=== PATIENT | female | born 1975 | race Caucasian/White ===

== ENCOUNTER 2025-03-03 15:55 | Emergency (ER) | payer BC, SELFPAY ==
[2025-03-03 16:15] VITALS: BP 111/69; PULSE 101; RESP 14; TEMP 36.6; O2SAT 100
--- NOTE | 2025-03-03 16:15 | ED.GENADULT ---
HPI - General Adult General Stated complaint: heart palpitations Time Seen by Provider: 03/03/25 16:07 Source: patient, RN notes reviewed and old records reviewed Mode of arrival: ambulatory Limitations: no limitations History of Present Illness HPI narrative: 50-year-old female presents to the [facility] with concerns for heart palpitations, fluttering in her chest since yesterday. Has had shortness of breath and nausea associated with it. States that she thought it was anxiety at 1st but it is not resolving. Has a history of anxiety. Onset (ago): day(s) (1) Review of Systems Review of Systems: All systems reviewed & are unremarkable except as noted in HPI and below Constitutional: Constitutional: Reports no additional constitutional complaints ENT: Reports system reviewed and no additional complaints, except as documented Cardiovascular: Cardiovascular: Reports as per HPI, Reports chest pain, Reports rapid heart rate, Denies pedal edema, Denies edema, Reports palpitations and Reports dyspnea Respiratory: Respiratory: Reports no additional respiratory complaints, Denies chest congestion, Denies cough and Denies dyspnea Musculoskeletal: Musculoskeletal: Reports no additional musculoskeletal complaints Integumentary/Breasts: Skin/Breast: Reports system reviewed and no additional complaints, except as docu PMFSH Past Medical History Medical History (Updated 03/03/25 @ 16:41 by Tania Samano APRN) Anxiety and depression Comments At the time of my signature, I reviewed and agree with the nursing past medical, surgical, social, and family history. There is no relevant family history pertinent to the patient complaint. Exam Const: General: cooperative, healthy appearing, comfortable, no acute distress, well developed, alert and well nourished Nutritional Appearance: well nourished Orientation/consciousness: patient oriented x3 Limitations: no limitations HENMT: Head: normal to inspection Mouth: Yes Normal oral and palatal mucosa present, Yes lip normal, Yes tongue normal and Yes moist mucous membranes Eyes: General: appearance normal, both eyes and all related structures Alignment and Position: alignment normal Neck: Neck: normal visual inspection, full ROM, no lymphadenopathy and no meningeal signs Chest: Chest palpation & inspection: normal inspection of the chest Resp: Effort & Inspection: normal respiratory effort and able to speak in complete sentences Auscultation: clear to auscultation bilaterally, no crackles, no rales, no rhonchi and no wheezes Cardio: Rate: tachycardic Rhythm: regular rhythm Skin: General skin exam: normal color and no rashes or lesions noted Neuro: General: patient oriented x3, gait normal, moves all extremities and no meningeal signs Cognition (Neuro): normal cognition Speech: normal speech Gait exam (Neuro): Normal gait present Extrem: General: normal to inspection, full ROM, capillary refill normal and normal gait Psych: Appearance: grossly normal and well kempt Mental Status: mental status grossly normal Speech and movement: Normal speech and movement present and Clear speech present Affect: normal affect Attitude: cooperative Course Course Level of Care: Express Care Visit Vital Signs Vital signs: Vital Signs Temperature 98 F 03/03/25 16:15 Pulse Rate 101 H 03/03/25 16:15 Respiratory Rate 14 03/03/25 16:15 Blood Pressure 111/69 03/03/25 16:15 Pulse Oximetry 100 03/03/25 16:15 Oxygen Delivery Room Air 03/03/25 16:15 Temperature 98 F 03/03/25 16:15 Pulse Rate 101 H 03/03/25 16:15 Respiratory Rate 14 03/03/25 16:15 Blood Pressure 111/69 03/03/25 16:15 Pulse Oximetry 100 03/03/25 16:15 Oxygen Delivery Room Air 03/03/25 16:15 Reviewed Transfer Transfered to: [facility] Transportation: Other (POV, declined EMS) Transfer rationale: Patient with 1 day history of heart palpitations, nausea and shortness of breath associated with EKG shows right bundle branch block, T-wave abnormality, abnormal EKG sending for higher level of care Accepting physician: Spoke with Dr Kenrick Villa Medical Decision Making MDM Narrative Medical decision making narrative: Patient sitting in exam room. Patient is nontoxic, vitals stable. Patient presents with approximately 24 hours of heart racing associated with some shortness of breath and nausea. Abnormal EKGs, sending for higher level of care Transfer instructions reviewed with patient and to go directly to the ER. Do not eat or drink until cleared by ER provider. EMS offered, patient declined stating that her will drive her All questions have been answered, and the patient deny any further questions. Some parts of this dictation were generated by voice recognition software and may contain typographical and/or grammatical inaccuracies. Differential Diagnosis Differential Diagnosis: Electrolyte disturbance, cardiac event, AFib, a flutter, anxiety, PE Medical Records Medical records reviewed: Yes I reviewed the external patient's medical records. Vital Signs Vital Signs: Vital Signs Temperature 98 F 03/03/25 16:15 Pulse Rate 101 H 03/03/25 16:15 Respiratory Rate 14 03/03/25 16:15 Blood Pressure 111/69 03/03/25 16:15 Pulse Oximetry 100 03/03/25 16:15 Oxygen Delivery Room Air 03/03/25 16:15 Temperature 98 F 03/03/25 16:15 Pulse Rate 101 H 03/03/25 16:15 Respiratory Rate 14 03/03/25 16:15 Blood Pressure 111/69 03/03/25 16:15 Pulse Oximetry 100 03/03/25 16:15 Oxygen Delivery Room Air 03/03/25 16:15 Reviewed Lab Data Lab results reviewed: Yes I reviewed the patient's lab results. Labs: Reviewed ECG Data EKG #1: ECG completion date: 03/03/25 ECG completion time: 16:09 Prior ECG tracings: not available for review Interpretation: Sinus tachycardia, right bundle branch block, moderate T-wave abnormality abnormal EKG, ventricular rate 103, MD interval 136, QRS duration 118 EKG #2: ECG completion date: 03/03/25 ECG completion time: 16:12 Prior ECG tracings: not available for review Interpretation: Sinus rhythm, moderate T-wave abnormality, abnormal EKG Ventricle rate 96, MD interval 163, QRS duration 69 EKG #3: ECG completion date: 03/03/25 ECG completion time: 16:09 Interpretation: Sinus rhythm, moderate T-wave abnormality, abnormal EKG, ventricular rate of 88, MD interval 150, QRS duration 173 Critical Care Time Critical Care Time Critical Care Time: No Discharge Plan Discharge Clinical Impression: Heart palpitations Patient Disposition: Acute Care Hospital Condition: Stable Instructions: Antibiotic Form Patient Language: Korean Follow-up/Referrals: PHYSICIAN,MEDICAL EDUCATION COORDINATOR [Primary Care Provider, Internal Medicine]
--- NOTE | 2025-03-03 16:19 | ECG_ITS ---
Test Date: 2025-03-03 16:12:02 Measurements Intervals [place] Rate: 96 P: 64 MO: 163 QRS: 83 QRSD: 69 T: -35 QT: 321 QTc: 407 Interpretive Statements SINUS RHYTHM MODERATE T-WAVE ABNORMALITY, CONSIDER INFERIOR ISCHEMIA [-0.1+ mV T WAVE IN II/aVF] ABNORMAL ECG. Compared to ECG 03/03/2025 16:09:51 Sinus tachycardia no longer present Right bundle-branch block no longer present T-wave abnormality still present Possible ischemia still present Electronically Signed On 03-04-2025 09:36:50 CDT by Jagdeep Mares M.D.
--- NOTE | 2025-03-03 16:20 | ECG_ITS ---
Test Date: 2025-03-03 16:09:51 Measurements Intervals [place] Rate: 103 P: 65 NE: 136 QRS: 94 QRSD: 118 T: -22 QT: 366 QTc: 481 Interpretive Statements SINUS TACHYCARDIA RIGHT BUNDLE BRANCH BLOCK [120+ ms QRS DURATION, UPRIGHT V1, 40+ ms S IN I/aVL/V4/V5/V6] MODERATE T-WAVE ABNORMALITY, CONSIDER ANTEROLATERAL ISCHEMIA [-0.1+ mV T WAVE IN V3-V6] MODERATE T-WAVE ABNORMALITY, CONSIDER INFERIOR ISCHEMIA [-0.1+ mV T WAVE IN II/aVF] ABNORMAL ECG Compared to ECG 03/03/2025 16:09:15 Right bundle-branch block now present T-wave abnormality still present Electronically Signed On 03-04-2025 09:36:30 CDT by Jagdeep Mares M.D.
--- NOTE | 2025-03-03 16:20 | ECG_ITS ---
Test Date: 2025-03-03 16:09:15 Measurements Intervals [place] Rate: 88 P: 68 AR: 150 QRS: 86 QRSD: 73 T: -37 QT: 327 QTc: 397 Interpretive Statements SINUS RHYTHM MODERATE T-WAVE ABNORMALITY, CONSIDER INFEROLATERAL ISCHEMIA [-0.1+ mV T WAVE IN II/aVF] ABNORMAL ECG No previous ECG available for comparison Electronically Signed On 03-04-2025 09:35:48 CDT by Jagdeep Mares M.D.
== END 2025-03-03 16:23 | disposition short-term general hospital (02) ==
PROVIDERS: Emergency Provider Nurse Practitioner
DX: R00.2 Palpitations (principal)
CPT/HCPCS: 93005; 99213; G0463

== ENCOUNTER 2025-03-03 16:39 | Emergency (ER) | payer BC, SELFPAY ==
--- OUTSIDE RECORDS SUMMARY | 2024-05-20 04:00 | XMS_ITS ---
Author Organization [facility] Address [address] [place] [address] Care Team Providers Care Insulation Cupola Operator Name Role Phone Dr. Jason Britton Primary Care Provider [phone] Migration, Provider Unavailable Unavailable REASON FOR VISIT [place] [place] En[place] Location Date Provider Diagnosis [facility] [address] [place] [address] 05/20/2024 Provider Migration Plan Of Treatment Medication Medication Name Sig Start Date Stop Date Notes Escitalopram Oxalate 20 MG Tablet 1 Oral every day; Duration: 7 04/13/2024 04/13/2024 Rx Refill Request,discontinuere ason:Refilled Diflucan 150 MG Tablet 1 Oral once a week; Duration: 0 11/05/2020 11/05/2020 buPROPion HCl ER (XL) 150 MG Tablet Extended Release 24 Hour 1 Oral every day; Duration: 30 10/02/2021 11/30/2021 Amitriptyline HCl 10 MG Tablet 1 Oral every night at bedtime; Duration: 0 12/19/2020 12/19/2020 ,discontinuereason:U p dated Medication Hx Progress Notes * GIANNABernardo LUAiDOB:1975 (50 yo F)Acc No.[id number]:05/20/2024 Patient: Zohra DUGAN :1975 A ge:49 Y S ex:Female Address:[place], [address] * Refills Stop Escitalopram Oxalate Tablet, 20 MG, Oral, 90, 1, every day, 90 Stop Escitalopram Oxalate Tablet, 20 MG, Oral, 60, 1, every day, 60 Stop Escitalopram Oxalate Tablet, 20 MG, Oral, 14, 1, every day, 14 Stop Escitalopram Oxalate Tablet, 20 MG, Oral, 14, 1, every day, 14 Stop Amitriptyline HCl Tablet, 10 MG, Oral, 1, every night at bedtime, 0 Stop Escitalopram Oxalate Tablet, 20 MG, Oral, 90, 1, every day, 90 Stop Escitalopram Oxalate Tablet, 20 MG, Oral, 60, 1, every day, 30 Stop Escitalopram Oxalate Tablet, 20 MG, Oral, 1, every day, 0 Stop Escitalopram Oxalate Tablet, 20 MG, Oral, 90, 1, every day, 0 Stop Escitalopram Oxalate Tablet, 20 MG, Oral, 90, 1, every day, 90 Stop Escitalopram Oxalate Tablet, 20 MG, Oral, 90, 1, every day, 90 Stop Escitalopram Oxalate Tablet, 20 MG, Oral, 90, 1, every day, 90 Stop Escitalopram Oxalate Tablet, 20 MG, Oral, 7, 1, every day, 7 Stop Escitalopram Oxalate Tablet, 20 MG, Oral, 90, 1, every day, 90 Stop Escitalopram Oxalate Tablet, 20 MG, Oral, 90, 1, every day, 90 Stop Diflucan Tablet, 150 MG, Oral, 2, 1, once a week, 0 Stop buPROPion HCl ER (XL) Tablet Extended Release 24 Hour, 150 MG, Oral, 30, 1, every day, 30 Subjective: * Chief Complaints: * E MR-Quoc Objective: Past Vitals:* 03/17/2024 BP: 118/64 mm Hg, HR: 62 /mi n, Oxygen sat %: 97 %, Wt: 219.01 lbs, Wt-k.34 kg * 09/29/2022 BP: 128/82 mm Hg, HR: 84 /mi n, Oxygen sat %: 98 %, Wt: 201.37 lbs, Wt-k.34 kg * * Date:
--- OUTSIDE RECORDS SUMMARY | 2024-05-21 04:00 | XMS_ITS ---
Author Organization [facility] Address [address] [place] [id number] Care Team Providers Care Financial Reserve Clerk Name Role Phone Dr. Jason Britton Primary Care Provider [phone] Migration, Provider Unavailable Unavailable Allergies Allergen (clinical drug ingredient) Drug/Non Drug Allergy documented on EMR Reaction Allergy Type Onset Date Status Substance with penicillin structure and antibacterial mechanism of action (substance) Penicillins anaphylaxis Drug Allergy 11/05/2020 Active REASON FOR VISIT [facility] [place] Medications Medication SIG (Take, Route, Frequency, Duration) Notes Start Date End Date Status Escitalopram Oxalate 20 MG Tablet 1 Oral every day; Duration: 30 04/14/2024 10/10/2024 Active Vitamin D3 50 MCG (1999 UT) Capsule 1 Oral every day; Duration: 0 11/05/2020 Active Social History Social History Additional Details Category Social Info Options Details Migrated Social History Migrated Social History Alcohol history:Never drinks alcohol , Tobacco history:Never smoker , Number of children:3 Encounters Encounter Location Date Provider Diagnosis [facility] [address] [place] [address] 05/21/2024 Provider Migration Plan Of Treatment No Information Progress Notes * Bernardo FLOWERiDOB:1975 (50 yo F)Acc No.[id number]:05/21/2024 Patient: Zohra DUGAN :1975 A ge:49 Y S ex:Female Address:[address] [place], [address] Subjective: * Chief Complaints: * E MR-Quoc * Surgical History: Nasal Polypectomy c section ,notes : 3 times * Social History: M igrated Social History: M igrated Social History: Alcohol history:Never drinks alcohol,Tobacco history:Never smoker,Number of children:3. * Medications: T akingVitamin D3 50 MCG (1999 UT) Capsule 1 Oral every day Escitalopram Oxalate 20 MG Tablet 1 Oral every day , stop date 10/10/2024Taking Vitamin D3 50 MCG (2000 UT) Capsule 1 Oral every day Taking Escitalopram Oxalate 20 MG Tablet 1 Oral every day , stop date 10/10/2024 * Allergies: P enicillins: anaphylaxis - Allergy - Onset Date 11/05/2020 Objective: Past Vitals:* 03/17/2024 BP: 118/64 mm Hg, HR: 62 /mi n, Oxygen sat %: 97 %, Wt: 219.01 lbs, Wt-k.34 kg * 09/29/2022 BP: 128/82 mm Hg, HR: 84 /mi n, Oxygen sat %: 98 %, Wt: 201.37 lbs, Wt-k.34 kg * * Date:
--- OUTSIDE RECORDS SUMMARY | 2025-02-09 06:15 | XMS_ITS ---
Author Organization [facility] Address [address] [place] [id number] Care Team Providers Care Manager Compliance Name Role Phone Dr. Jason Britton Primary Care Provider [phone] Davon Ponce Unavailable [phone] Allergies Allergen (clinical drug ingredient) Drug/Non Drug Allergy documented on EMR Reaction Allergy Type Onset Date Status Substance with penicillin structure and antibacterial mechanism of action (substance) Penicillins anaphylaxis Drug Allergy 11/05/2020 Active REASON FOR VISIT med check Medications Medication SIG (Take, Route, Frequency, Duration) Notes Start Date End Date Status Escitalopram Oxalate 20 MG Tablet 1 tablet Orally Once a day; Duration: 30 days Pt needs an apt for any further fills Active Vitamin D3 50 MCG (1999) Capsule 1 Oral every day; Duration: 0 11/05/2020 Active Encounters Encounter Location Date Provider Diagnosis [address] [address] 02/09/2025 Davon Ponce Hypothyroidism, unspecified E03.9 and Mixed hyperlipidemia E78.2 Assessments Encounter Date Diagnosis (ICD Code) Assessment Notes Treatment Notes Treatment Clinical Notes Section Notes 02/09/2025 Hypothyroidism, unspecified (ICD-10 - E03.9) Condition stable. Please take the thyroid medicine on an empty stomach (often that is first thing in the morning) without any other medications. Check thyroid function with blood work at least annually if all is stable or 2 months after a medication change. 02/09/2025 Mixed hyperlipidemia (ICD-10 - E78.2) MANAGEMENT: Condition stable. Continue same treatment plan. RECOMMENDATIONS : Maintain a regular exercise program. Reduce the amount of cholesterol and saturated fat in your diet. (Limiting red meats and dairy)FOLLOWUP: Return to clinic in 6 months for recheck. Plan Of Treatment Treatment Notes Assessment Notes Hypothyroidism, unspecified Condition st able. Please take the thyroid medicine on an empty stomach (often that is first thing in the morning) without any other medications. Check thyroid function with blood work at least annually if all is stable or 2 months after a medication change. Mixed hyperlipidemia MANAGEMENT: Conditi on stable. Continue same treatment plan. RECOMMENDATIONS: Maintain a regular exercise program. Reduce the amount of cholesterol and saturated fat in your diet. (Limiting red meats and dairy)FOLLOWUP: Return to clinic in 6 months for recheck. Pending Test Test Name Order Date Lipid Panel {Chol, Trig, HDL, LDL} 02/09 Free T4 And TSH 02/09/2025 Progress Notes * Bernardo FLOWERiDOB:1975 (50 yo F)Acc No.[id number]:02/09/2025 Patient: Zohra Beth Provider: SHERI Da Silva :1975 A ge:49 Y S ex:Female Date:02/09/2025 Address:[facility] [address], [place] [address] Pcp:Dr. Jason Britton Subjective: * Chief Complaints: * M ed check * HPI: H PI: Hypothyroidism: P t. currently managed with medication.Hyperlipidemia: P t. is actively managing their high cholesterol. D epression;Pt is medically managed. * Medical History: Hypothyroidism, unspecified Mixed hyperlipidemia Generalized anxiety disorder Psychophysiologic insomnia Prediabetes Depression, unspecified * Surgical History: c section ,notes : 3 times Nasal Polypectomy * Medications: T akingVitamin D3 50 MCG (2000 UT) Capsule 1 Oral every day Escitalopram Oxalate 20 MG Tablet 1 tablet Orally Once a day , Notes to Pharmacist: Pt needs an apt for any further fillsTaking Vitamin D3 50 MCG (2000 UT) Capsule 1 Oral every day Taking Escitalopram Oxalate 20 MG Tablet 1 tablet Orally Once a day , Notes to Pharmacist: Pt needs an apt for any further fills * Allergies: P enicillins: anaphylaxis - Allergy - Onset Date 11/05/2020 Objective: Past Vitals:* 03/17/2024 BP: 118/64 mm Hg, HR: 62 /mi n, Oxygen sat %: 97 %, Wt: 219.01 lbs, Wt-k.34 kg * 09/29/2022 BP: 128/82 mm Hg, HR: 84 /mi n, Oxygen sat %: 98 %, Wt: 201.37 lbs, Wt-k.34 kg Assessment: * Assessment: 1. H ypothyroidism, unspecified - E03.9 (Primary) S pecify :Src Problem: Hypothyroidism, unspecified type 2 . M ixed hyperlipidemia - E78.2 Plan: * Treatment: 2. M ixed hyperlipidemia L AB: Lipid Panel {Chol, Trig, HDL, LDL} Notes: MANAGEMENT: Condition stable. Continue same treatment plan. R ECOMMENDATIONS: Maintain a regular exercise program. Reduce the amount of cholesterol and saturated fat in your diet. (Limiting red meats and dairy)FOLLOWUP: Return to clinic in 6 months for recheck. Billing Information: * Procedure Codes: * Electronic signature of Lamberto Ponce on 03/03/2025 at 04:41 PM CDT Sign off status: Pending * Provider: SHERI Da Silva Date: 0 02/09/2025 Generated for Eleazar mancia/Ana Rosa/Kylahitting on: 0 03/03/2025 04:41 PM CDT
--- NOTE | ~2025-03-03 | XR_ITS ---
EXAMINATION: XR chest 2V, 03/03/2025 17:50 CDT HISTORY: dyspnea COMPARISON: No comparisons available. Technique: 2 views obtained. Findings: The lungs are clear, no effusion. No pneumothorax. Heart is normal size. Mediastinal and hilar contours are within normal limits. Bony thorax no acute abnormality. Impression: No acute cardiopulmonary abnormality. Reviewed, dictated and finalized at location A. Impression: No acute cardiopulmonary abnormality.
--- OUTSIDE RECORDS SUMMARY | 2025-03-03 16:41 | XMS_ITS | Patient Health Record ---
Author Organization [facility] dicine Address [address] [place] [address] Care Team Providers Care Travel Registered Nurse Icu Name Role Phone Dr. Jason Britton Primary Care Provider [phone] Davon Ponce Unavailable [phone] Migration, Provider Unavailable Unavailable Allergies Allergen (clinical drug ingredient) Drug/Non Drug Allergy documented on EMR Reaction Allergy Type Onset Date Status Substance with penicillin structure and antibacterial mechanism of action (substance) Penicillins anaphylaxis Drug Allergy 11/05/2020 Active Results Component Value Reference Range Notes CBC w/ Diff Reviewed date:05/16/2024 12:00:00 AM Interpretation: Performing Lab: Notes/Report: Baso Absolute 0.1 x10*3/mcL Basophil Auto 0.9 % Eos Absolute 0.2 x10*3/mcL Eosinophil Auto 2.8 % Hct 42.4 % Hgb 14.5 g/dL Lymph Absolute 2.0 x10*3/mcL Lymph Auto 26.4 % MCH 30.3 pg MCHC 34.3 g/dL MCV 88.5 fL Drew Absolute 0.5 x10*3/mcL Drew Auto 7.2 % MPV 10.6 fL Neutro Absolute 4.8 x10*3/mcL Neutro Auto 62.7 % Platelets 213 K/mcL RBC 4.79 x10*6/mcL RDW 12.8 % WBC 7.6 K/mcL Comprehensive Metabolic Pane l Reviewed date:05/16/2024 12:00:00 AM Interpretation: Performing Lab: Notes/Report: Albumin Lvl 4.6 g/dL Albumin/Globulin Ratio 1.8 Alk Phos 67 unit/L ALT 45 unit/L ANION GAP 6.8 mmol/L AST 21 unit/L Bilirubin Total 0.5 mg/dL BUN 28 mg/dL Calcium Lvl 9.9 mg/dL Chloride Lvl 107 mmol/L CO2 25 mmol/L Creatinine Lvl 0.70 mg/dL eGFR CKD-EPI >90 mL/min/1.73 m2 Glucose Lvl 109 mg/dL Potassium Lvl 4.1 mmol/L Protein Total 7.1 g/dL Sodium Lvl 139 mmol/L Hemoglobin A1c {Glycosylated } Reviewed date:05/16/2024 12:00:00 AM Interpretation: Performing Lab: Notes/Report: eAvg Glucose 120 mg/dL Hemoglobin A1c 5.8 % Lipid Panel {Chol, Trig, HDL , LDL} Reviewed date:05/16/2024 12:00:00 AM Interpretation: Performing Lab: Notes/Report: Chol/HDL 4 Cholesterol Total 214 mg/dL Coronary Risk 24 % HDL 51 mg/dL LDL 119 mg/dL NON HDL CHOLESTEROL 163 mg/dL Triglycerides 222 mg/dL T4 Free Reviewed date:05/16/2024 12:00:00 AM Interpretation: Performing Lab: Notes/Report: T4 Free 0.64 ng/dL Thyroid Stimulating Hormone Reviewed date:05/16/2024 12:00:00 AM Interpretation: Performing Lab: Notes/Report: TSH 2.10 mcIU/mL Vitamin D 25 Hydroxy Reviewed date:05/16/2024 12:00:00 AM Interpretation: Performing Lab: Notes/Report: Vitamin D 25 OH 60 ng/mL Reason For Referral No Information Medications Medication SIG (Take, Route, Frequency, Duration) Notes Start Date End Date Status Vitamin D3 50 MCG (1999) Capsule 1 Oral every day; Duration: 0 11/05/2020 Active Escitalopram Oxalate 20 MG Tablet 1 tablet Orally Once a day; Duration: 30 days Pt needs an apt for any further fills Active Immunizations Vaccine Route Administration Date Status Comme nts Influenza, quadrivalent (IIV4), split virus, 6-35 months dosage IM Intramuscular 04/30/2022 Administered ,sourcename : N ew immunization record ,immstatus : Complete Social History Social History Additional Details Category Social Info Options Details Migrated Social History Migrated Social History Alcohol history:Never drinks alcohol , Number of children:3 , Tobacco history:Never smoker Problems Problem Type SNOMED Code ICD Code Onset Dates Problem Status W/U Status Risk Notes Problem Hypothyroidism (21367821) Hypothyroidism, unspecified (E03.9) 2022 Active confirmed Problem 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 Active confirmed Problem Pure hypercholesterolemia (756226118) Pure hypercholesterolem ia, unspecified (E78.00) 2022 Active confirmed Problem Hyperlipidemia (42210597) Other and unspecified hyperlipidemia (272.4) 2017 Problem resolved confirmed Problem Fever (066193603) Fever, unspeci fied (780.60) 2017 Problem resolved confirmed Problem Localized edema (1076695) Localized edema (R60.0) 2020 Problem resolved confirmed Problem Preoperative diagnos is (951453032) Encounter for preprocedural laboratory examination (Z01.812) 2016 Problem resolved confirmed Problem Pre-employment screening (013923916) Encounter for pre-employment examination (Z02.1) 2016 Problem resolved confirmed Problem Pre-procedure evaluation check (121550692) Encounter for other preprocedural examination (Z01.818) 2016 Problem resolved confirmed Problem Pneumonia (344841592) Pneumonia, unspecified organism (J18.9) 2017 Problem resolved confirmed Problem Acute sinusitis (12660073) Acute sinusitis, unspecified (J01.90) 2017 Problem resolved confirmed Problem Candidal vulvovaginitis (60210876) Candidiasis of vulva and vagina (B37.3) 2020 Problem resolved confirmed Problem Pre-operative evaluation (982711730) Unspecified pre-operative examination (V72.84) 2016 Problem resolved confirmed Problem Pneumonia (522152859) Pneumonia, organism unspecified (486) 2017 Problem resolved confirmed Problem Sleep disorder (80396818) Persistent disorder of initiating or maintaining sleep (307.42) 2017 Problem resolved confirmed Problem Acquired hypothyroidism (796850059) Other specified acquired hypothyroidism (244.8) 2017 Problem resolved confirmed Problem Depression (310509430) Depressio n, unspecified (F32.A) 2021 Active confirmed Problem Prediabetes (781832876) Prediabetes (R73.03) 2022 Active confirmed Problem Sexually transmitted infectious disease (5893314) Encounter for screening for infections with a predominantly sexual mode of transmission (Z11.3) 2021 Active confirmed Problem Abnormal weight gain (107933245) Abnormal weight gain (R63.5) 2022 Active confirmed Problem Disorder of pigmentation (263472303) Disorder of pigmentation, unspecified (L81.9) 2022 Active confirmed Problem Sleep disorder (83118243) Sleep disorder, unspecified (G47.9) 2021 Active confirmed Problem Psychophysiologic insomnia (702713379) Psychophysiologic insomnia (F51.04) 2017 Active confirmed Problem Generalized anxiety disorder (92187652) Generalized anxiety disorder (F41.1) 2022 Active confirmed Problem Neoplasm of uncertai n behavior of skin (82323196) Neoplasm of uncertain behavior of skin (D48.5) 2022 Active confirmed Problem Screening for malignant neoplasm of breast (985248077) Encounter for screening mammogram for malignant neoplasm of breast (Z12.31) 2021 Active confirmed Problem Mixed hyperlipidemia (143942773) Mixed hyperlipidemia (E78.2) 2021 Active confirmed Vital Signs Heart Rate 62 /min 03/17/2024 Temperature 96.9 degrees Fahrenheit 03/17/2024 Respiratory Rate 18 /min 03/17/2024 Height-cm 167.64 cm 03/17/2024 Oximetry 97 % 03/17/2024 Blood pressure diastolic 64 mm Hg 03/17/2024 Weight-kg 99.34 kg 03/17/2024 Height 66.00 in 03/17/2024 Blood pressure systolic 118 mm Hg 03/17/2024 Weight 219.01 lbs 03/17/2024 BMI 35.35 kg/m2 03/17/2024 Encounters Encounter Location Date Provider Diagnosis [address] [address] 03/17/2024 Davon Kris Hypothyroidism, unspecified E03.9 ; Encounter for screening mammogram for malignant neoplasm of breast Z12.31 ; Generalized anxiety disorder F41.1 ; Encounter for screening for malignant neoplasm of colon Z12.11 ; Encounter for general adult medical examination without abnormal findings Z00.00 and Prediabetes R73.[address] [address] 02/09/2025 [facility] Hypothyroidism, unspecified E03.9 and Mixed hyperlipidemia E78.[address] [address] 02/22/[address] [address] 02/28/2025 [facility] No-show for appointment Z91.[address] [address] 05/20/2024 Provider Migration [address] [address] 05/21/2024 Provider Migration [address] [address] 01/16/2025 Dr. Jason Britton Assessments Encounter Date Diagnosis (ICD Code) Assessment Notes Treatment Notes Treatment Clinical Notes Section Notes 03/17/2024 Hypothyroidism, unspecified (ICD-10 - E03.9) 03/17/2024 Generalized anxiety disorder (ICD-10 - F41.1) 03/17/2024 Encounter for general adult medical examination without abnormal findings (ICD-10 - Z00.00) 03/17/2024 Encounter for screening for malignant neoplasm of colon (ICD-10 - Z12.11) 03/17/2024 Encounter for screening mammogram for malignant neoplasm of breast (ICD-10 - Z12.31) 03/17/2024 Prediabetes (ICD-10 - R73.03) 02/09/2025 Hypothyroidism, unspecified (ICD-10 - E03.9) Condition stable. Please take the thyroid medicine on an empty stomach (often that is first thing in the morning) without any other medications. Check thyroid function with blood work at least annually if all is stable or 2 months after a medication change. 02/28/2025 No-show for appointment (ICD-10 - Z91.199) 02/09/2025 Mixed hyperlipidemia (ICD-10 - E78.2) MANAGEMENT: Condition stable. Continue same treatment plan. RECOMMENDATIONS : Maintain a regular exercise program. Reduce the amount of cholesterol and saturated fat in your diet. (Limiting red meats and dairy)FOLLOWUP: Return to clinic in 6 months for recheck. Plan Of Treatment Pending Test Test Name Order Date Lipid Panel {Chol, Trig, HDL, LDL} 02/09 Free T4 And TSH 02/09/2025 Insurance Providers Payer Name Payer Address Payer Phone Subscriber Number Group Number Insured Name Patient Relationship to Insured Coverage Start Date Coverage End Date [employer] [address] [place] [address] [id number] Zohra Flower Self - patient is the insured 3 [facility] [address] [address] [place] [address] [id number] Zohra Flower Self - patient is the insured 3 Medical (General) History Medical History History ICD Code Hypothyroidism, unspecified E03.9 Mixed hyperlipidemia E78.2 Generalized anxiety disorder F41.1 Psychophysiologic insomnia F51.04 Prediabetes R73.03 Depression, unspecified F32.A Surgical History Surgery Date(Month/Year) c section ,notes : 3 times Nasal Polypectomy
--- NOTE | 2025-03-03 16:43 | ECG_ITS ---
Test Date: 2025-03-03 16:47:24 Measurements Intervals [place] Rate: 98 P: 66 MO: 159 QRS: 89 QRSD: 66 T: -50 QT: 314 QTc: 403 Interpretive Statements SINUS RHYTHM MODERATE T-WAVE ABNORMALITY, CONSIDER ANTEROLATERAL ISCHEMIA [-0.1+ mV T-WAVE IN V3-V6] MODERATE T-WAVE ABNORMALITY, CONSIDER INFERIOR ISCHEMIA [-0.1+ mV T-WAVE IN II/aVF] ABNORMAL ECG Compared to ECG 03/03/2025 16:12:02 No significant changes Electronically Signed On 03-04-2025 09:37:55 CDT by Jagdeep Mares M.D.
[2025-03-03 17:03] LABS: Hematocrit 41.0 % (37.0-47.0); Hemoglobin 14.5 g/dL (12.0-15.0); Immature Granulocyte Percent A 0.4 % (0-0.5); Lymphocytes Absolute Auto 1.93 K/mm3 (0.9-3.2); Mean Corpuscular HGB Conc 35.4 g/dl (32-36); Mean Corpuscular Hemoglobin 30.2 pg (26-34); Mean Corpuscular Volume 85.4 fl (80-100); Nucleated Red Blood Cells Absolute Auto 0.000 K/mm3 (0.0-0.012); Nucleated Red Blood Cells Perc 0.0 % (0.0-0.2); Platelet Count Result 289 k/mm3 (150-375); Red Blood Count 4.80 M/mm3 (4.2-5.4); White Blood Count 10.4 K/mm3 (4.5-10.0)
[2025-03-03 17:14] LABS: INR 1.0; Prothrombin Time 13.5 Seconds (11.1-14.7)
[2025-03-03 17:15] LABS: Alanine Aminotransferase 14 U/L (6-35); Albumin Level 4.5 g/dL (3.5-5.1); Alkaline Phosphatase 52 U/L (38-126); Anion Gap 10 mmol/L (4-12); Aspartate Amino Transferase 23 U/L (14-36); Bilirubin,Total 1.2 mg/dL (0.2-1.3); Blood Urea Nitrogen 19 mg/dL (7-17); Calcium 9.3 mg/dL (8.4-10.2); Carbon Dioxide 21 mmol/L (22-30); Chloride 105 mmol/L (98-107); Estimated CRCL calculation 72 ml/min; Estimated Glomerular Filt Rate > 60; Glucose 90 mg/dL (65-110); Lipase 319 U/L (23-300); Potassium 3.9 mmol/L (3.4-5.0); Sodium 136 mmol/L (137-145); Total Protein 7.5 g/dL (6.3-8.2)
[2025-03-03 17:15] LABS: Partial Thromboplastin Time 28.1 Seconds (22.3-36.8)
[2025-03-03 17:20] VITALS: PULSE 85; RESP 17; O2SAT 99
--- NOTE | 2025-03-03 17:22 | ED_ITS ---
HPI - Arrhythmia/Palpitations General Chief Complaint: Arrhythmia/Palpitations Stated Complaint: heart palpatations Time Seen by Provider: 03/03/25 17:22 Source: patient Mode of arrival: ambulatory Limitations: no limitations History of Present Illness HPI narrative: 50 YEARS OLD WHITE FEMALE CAME TO THE ED FROM URGENT CARE BECAUSE OF CHEST PAIN IN THE FORM OF PALPITATION AND FLUTTERING PATIENT REPORTED TONS OF STRESS AT HER WORK LATELY.. HISTORY OF DEPRESSION CURRENTLY ON LEXAPRO 20 MG ONCE A DAY. SHE DENIES ANY FEVER, CHILLS, NAUSEA, OR VOMITING. ON ARRIVAL TO THE ED PATIENT MAIN COMPLAINT IS WORRIED ABOUT HER JOB Related Data Allergies Allergy/AdvReac Type Severity Reaction Status Date / Time Penicillins Allergy Severe Anaphylaxis Verified 03/03/25 16:42 Review of Systems 2 Review of Systems: All systems reviewed & are unremarkable except as noted in HPI and below PMFSH Past Medical History Medical History Anxiety and depression Exam 2 Narrative: GENERAL APPEARANCE: WELL-DEVELOPED, WELL-NOURISHED SKIN: NORMAL COLOR HEAD: NORMOCEPHALIC, NONTRAUMATIC EYES: CLEAR CONJUNCTIVA ENT: OROPHARYNX NORMAL, EARS NORMAL, NOSE NORMAL NECK: SUPPLE, NONTENDER CHEST AND RESPIRATORY: AIRWAY PATENT, NO RESPIRATORY DISTRESS, NO ACCESSORY MUSCLE USE HEART: REGULAR RATE/RHYTHM ABDOMEN: SOFT, NONTENDER, NO ORGANOMEGALY, QUIET BOWEL SOUNDS VASCULAR: NORMAL PERIPHERAL PULSES, NORMAL CAPILLARY REFILL. 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 TESTED, NO GROSS MOTOR DEFICIT Course Course Emergency Course: PATIENT PRESENTS WITH PALPITATION VITAL SIGNS ARE STABLE PHYSICAL EXAMINATION IS UNREMARKABLE DIFFERENTIAL DIAGNOSIS INCLUDE ANXIETY, CARDIAC ARRHYTHMIA, ELECTROLYTE IMBALANCE, DEHYDRATION BLOOD WORKUP TODAY INCLUDES CBC, CMP, TROPONIN, TSH SHOWED NO ACUTE ABNORMALITY CHEST X-RAY SHOWED NO ACUTE ABNORMALITY EKG ON ARRIVAL SHOWED MDM - Arrhythmia/Palpitations Lab Data 03/03/25 16:51 03/03/25 16:52 Labs: Lab Results 03/03/25 03/03/25 Range/Units 16:51 16:52 WBC 10.4 H (4.5-10.0) K/mm3 RBC 4.80 (4.2-5.4) M/mm3 Hgb 14.5 (12.0-15.0) g/dL Hct 41.0 (37.0-47.0) % MCV 85.4 (80-100) fl MCH 30.2 (26-34) pg MCHC 35.4 (32-36) g/dl RDW 12.2 (11.5-14.5) % Plt Count 289 (150-375) k/mm3 MPV 11.0 H (7.4-10.4) fl Immature Gran % (Auto) 0.4 (0-0.5) % Neut % (Auto) 74.8 H (45.5-73.1) % Lymph % (Auto) 18.6 (18.3-44.2) % [place] % (Auto) 5.9 (2.6-8.5) % Eos % (Auto) 0.0 (0-4.4) % Baso % (Auto) 0.3 (0.2-1.2) % Lymph # (Auto) 1.93 (0.9-3.2) K/mm3 [place] # (Auto) 0.6 (0.1-0.6) K/mm3 Eos # (Auto) 0.0 (0-0.3) K/mm3 Baso # (Auto) 0.0 (0.0-0.1) K/mm3 Abs Immat Gran (auto) 0.04 H (0.00-0.031) K/mm3 Absolute Neuts (auto) 7.7 H (1.3-6.7) K/mm3 Absolute Nucleated RBC 0.000 (0.0-0.012) K/mm3 Nucleated RBC % 0.0 (0.0-0.2) % PT 13.5 (11.1-14.7) Seconds INR 1.0 APTT 28.1 (22.3-36.8) Seconds D-Dimer < 0.27 (<0.48) ug/mL Sodium 136 L (137-145) mmol/L Potassium 3.9 (3.4-5.0) mmol/L Chloride 105 (98-107) mmol/L Carbon Dioxide 21 L (22-30) mmol/L Anion Gap 10 (4-12) mmol/L BUN 19 H (7-17) mg/dL Creatinine 0.75 (0.7-1.0) mg/dL Estim Creat Clear Calc 72 ml/min Estimated GFR > 60 (59 - ) Glucose 90 (65-110) mg/dL Calcium 9.3 (8.4-10.2) mg/dL Total Bilirubin 1.2 (0.2-1.3) mg/dL AST 23 (14-36) U/L ALT 14 (6-35) U/L Alkaline Phosphatase 52 (38-126) U/L Troponin I < 0.012 (0.000-0.034) ng/mL Total Protein 7.5 (6.3-8.2) g/dL Albumin 4.5 (3.5-5.1) g/dL Lipase 319 H (23-300) U/L TSH Pending ECG Data EKG #1: Attestation: I personally reviewed and interpreted this ECG as follows: ECG completion date: 03/03/25 Interpretation: NORMAL SINUS RHYTHM AT 88 BEATS PER MINUTE, MODERATE T-WAVE ABNORMALITY NO PREVIOUS EKG AVAILABLE FOR COMPARISON Critical Care Time Critical Care Time Critical Care Time: No Discharge Plan Discharge Clinical Impression: Anxiety, Palpitation, Chest pain Patient Disposition: Home Condition: Stable Instructions: Heart Palpitations (DC), Stress (ED), Chest Pain (ED) Patient Language: Pashto Follow-up/Referrals: PHYSICIAN,CONSTRUCTION CONTROLLER [Primary Care Provider, Internal Medicine] Quality HEART score for chest pain patients History: slightly suspicious ECG: normal Age: > 45 and < 65 years Risk factors: no risk factors known Troponin: < or = to 1x normal limit Heart score: 1
[2025-03-03 17:26] LABS: Troponin I < 0.012 ng/mL (0.000-0.034)
[2025-03-03 17:30] VITALS: PULSE 85; RESP 12; O2SAT 99
[2025-03-03 17:45] VITALS: PULSE 94; RESP 21; O2SAT 100
[2025-03-03 18:01] VITALS: PULSE 87; RESP 16; O2SAT 99
[2025-03-03 18:15] VITALS: PULSE 83; RESP 12; O2SAT 99
[2025-03-03 18:25] LABS: Thyroid Stimulating Hormone 0.975 uIU/mL (0.465-4.680)
[2025-03-03 18:42] VITALS: BP 123/67
== END 2025-03-03 18:44 | disposition home or self-care (01) ==
PROVIDERS: Emergency Provider Emergency Medicine
DX: F41.9 Anxiety disorder, unspecified (principal); R00.2 Palpitations; R07.9 Chest pain, unspecified; R94.31 Abnormal electrocardiogram [ECG] [EKG]; F32.A Depression, unspecified
CPT/HCPCS: 36415; 71046; 80053; 83690; 84443; 84484; 85025; 85380; 85610; 85730; 93005; 99284